=== PATIENT | male | born 1945 | race Caucasian/White ===

== ENCOUNTER → 2023-10-07 07:33 | Outpatient (REF) | payer MEDICARE, OTHER, SELFPAY ==
[2023-10-07 10:10] LABS: Glycohemoglobin (HgbA1c) 5.3 % (4.0-5.6)
[2023-10-07 10:33] LABS: ALT (SGPT) 29 U/L (0-50); AST (SGOT) 32 U/L (17-59); Albumin 4.2 g/dl (3.5-5.0); Alkaline Phosphatase 62 U/L (38-126); Blood Urea Nitrogen 34 mg/dl (9-20); Calcium 10.6 mg/dl (8.4-10.2); Carbon Dioxide 28 mmol/L (22-30); Chloride 103 mmol/L (98-107); Glucose 103 mg/dl (70-99); HDL Cholesterol 90 mg/dl; LDL Cholesterol, Calculated 86 mg/dl; Potassium 4.4 mmol/L (3.5-5.1); Sodium 138 mmol/L (135-145); Total Bilirubin 0.7 mg/dl (0.2-1.3); Total Cholesterol 195 mg/dl (50-199); Total Protein 6.7 g/dl (6.3-8.2); Triglyceride 95 mg/dl (10-149); Very Low Density Lipoprotein 19 mg/dl (0-30); eGFR 56.93
[2023-10-07 12:02] LABS: PSA, Total - Screen 1.42 ng/ml (0.0-4.0)
[2023-10-07 14:34] LABS: TSH 3.36 uIU/ml (0.47-4.68)
== END ==
LOC: HWLAB 07:33
PROVIDERS: ATTENDING PHYSICIAN Internal Medicine
DX: R73.9 Hyperglycemia, unspecified (principal); E78.00 Pure hypercholesterolemia, unspecified; Z12.5 Encounter for screening for malignant neoplasm of prostate
CPT/HCPCS: 36415; 80053; 80061; 83036; 84443; G0103

== ENCOUNTER → 2024-09-29 10:05 | Outpatient (REF) | payer MEDICARE, OTHER, SELFPAY ==
[2024-09-29 12:43] LABS: % Eosinophils 6.6 % (0-6); % Immature Granulocytes 0.2 % (0-0.5); % Lymphocytes 23.6 % (20.5-51.1); % Monocytes 9.5 % (1.7-9.3); % Neutrophils 59.1 % (42.2-75.2); Absolute Basophils 0.1 10^3/uL (0-0.2); Absolute Eosinophils 0.3 10^3/uL (0-0.7); Absolute Lymphocytes 1.2 10^3/uL (1.2-3.4); Absolute Monocytes 0.5 10^3/uL (0.1-0.6); Absolute Neutrophils 3.1 10^3/uL (1.4-6.5); Hematocrit 43.6 % (39.0-52.0); Hemoglobin 14.8 g/dL (13.0-18.0); Mean Corp Hgb Conc. 33.9 g/dL (33.0-37.0); Mean Corpuscular Volume 97.1 fL (80.0-94.0); Mean Platelet Volume 9.5 fL (7.4-10.4); Nucleated Red Blood Cells % 0 % (-); Platelet Count 202 10^3/uL (130-400); Red Blood Cell Count 4.49 10^6/uL (4.70-6.10); Red Cell Dist. Width 13.1 % (11.5-14.5); White Blood Cell Count 5.2 10^3/uL (4.8-10.8)
[2024-09-29 13:06] LABS: ALT (SGPT) 22 U/L (0-50); AST (SGOT) 27 U/L (17-59); Albumin 4.5 g/dl (3.5-5.0); Alkaline Phosphatase 65 U/L (38-126); Blood Urea Nitrogen 41 mg/dl (9-20); Calcium 10.5 mg/dl (8.4-10.2); Carbon Dioxide 24 mmol/L (22-30); Chloride 108 mmol/L (98-107); Glucose 98 mg/dl (70-99); HDL Cholesterol 81 mg/dl; LDL Cholesterol, Calculated 121 mg/dl; Potassium 4.8 mmol/L (3.5-5.1); Sodium 141 mmol/L (135-145); Total Bilirubin 0.8 mg/dl (0.2-1.3); Total Cholesterol 223 mg/dl (50-199); Total Protein 7.4 g/dl (6.3-8.2); Triglyceride 106 mg/dl (10-149); Very Low Density Lipoprotein 21 mg/dl (0-30); eGFR 47.65
[2024-09-29 14:29] LABS: Glycohemoglobin (HgbA1c) 5.1 % (4.0-5.6)
== END ==
LOC: HWLAB 10:05
PROVIDERS: ATTENDING PHYSICIAN Internal Medicine
DX: F32.1 Major depressive disorder, single episode, moderate (principal); R73.9 Hyperglycemia, unspecified; E78.00 Pure hypercholesterolemia, unspecified
CPT/HCPCS: 36415; 80053; 80061; 83036; 84443; 85025

== ENCOUNTER 2024-10-26 05:16 | Inpatient (IN) | payer MEDICARE, OTHER, SELFPAY ==
[2024-10-25 23:35] VITALS: BP 163/88; BMI 25.8
--- NOTE | 2024-10-25 23:38 | ED.GENMED ---
History of Present Illness
General
Chief Complaint: Abdominal Pain
Source: patient
Exam Limitations: none
Time Seen by Provider: 10/25/24 23:35
Nursing documentation reviewed up to this point in time: agreed with
History of Present Illness
History of Present Illness:
This is a 79-year-old male with past medical history of hyperlipidemia, depression, migraines, who presents emergency department today with concerns of epigastric pain for the past hour and 15 minutes. Patient states that he is feeling well today
and is carrying on his usual when he went to bed. He woke up with this pain. He spoke to his daughter who encouraged him to call 911 or report to emergency department. He did have similar pain a few months ago but patient states that he was able
to go to bed and sleep through the pain but this time, the pain is more severe. He rates it as a constant, gnawing pain and he states he cannot feel position that is comfortable for him. He denies any nausea or vomiting. He denies any cough chest
pain shortness of breath fevers or chills. He denies any sick contacts. He denies any history of heart disease. He thought his symptoms were related to acid reflux however he took 2 Tums and noticed that the pain did not resolve. Patient does
take 2 Excedrin's weekly but denies any daily NSAID use. He denies any dark tarry stools, rectal bleeding. Previously used alcohol but does not currently drink.
Past History
Past History
ED Past Medical History: Hypercholesterolemia
Social History
Tobacco: Non-smoker
Drug: None
Personal:
Living: alone
Review of Systems
Review of Systems
All Other Systems: ROS reviewed and negative except as documented in HPI and ROS
Phy Exam
Physical Exam
Physical Exam:
General: Patient is well appearing and in no acute distress; non-toxic
Skin: Warm and dry, no rashes or lesions
Head: Normocephalic, atraumatic
Eyes: Sclera non-icteric. EOMs intact.
Cardiac: Regular rate and rhythm, no murmurs, no tenderness palpation of external chest wall
Peripheral Vascular: No lower extremity swelling or edema
Pulm: Normal respiratory effort, no wheezes, rales, or rhonchi
Abdomen: Epigastric upper abdominal tenderness to palpation no rebound no guarding
Neuro: CN II-XII intact, no focal neurologic deficits.
Psychiatric: Appropriate mood and affect.
Course
Orders/Labs/Results
Orders:
Orders
10/25/24 23:28
IV Insert/Care/Rem.- Treatment PRN
10/25/24 23:32
EKG [Electrocardiogram (*1)] Urgent
Reason for Study: Abdominal Pain
10/25/24 23:33
EKG- Treatment ONCE
Complete Blood Count/With Diff Urgent
Comprehensive Metabolic Panel Urgent
Lipase Urgent
10/25/24 23:59
Troponin I Urgent
Famotidine [Pepcid] 20 mg IV NOW STA
Pantoprazole [Protonix IV] 40 mg IV NOW STA
US Abdomen Complete/Upper Urgent
Comment:
Reason For Exam: epigastric pain/right sided pain
10/26/24 00:13
0.9% Sodium Chloride 500 ml [Nss] 500 ml IV BOLUS
10/26/24 01:29
Ketorolac [Toradol] 15 mg IV NOW STA
10/26/24 01:30
CT Abd/pelvis W Iv Cont Urgent
Comment:
Reason For Exam: epigastric/right sided abdominal pain
10/26/24 01:31
Electrocardiogram (*1) Urgent
Reason for Study: Chest Pain
10/26/24 02:59
Troponin I Urgent
10/26/24 03:00
Electrocardiogram (*1) Urgent
Reason for Study: Chest Pain
10/26/24 03:30
Piperacillin/Tazo 3.375 Gram [Zosyn] 3.375 gram in 50 ml IV NOW
10/26/24 04:53
Admit/Transfer Patient As Directed
Co-Sign Provider:
Level of Care: Inpatient admission
Assign to:: Telemetry
Physician / Group: hospital
Diagnosis: abdominal pain
Reason for Telemetry: Chest Pain syndromes
Date to Stop Telemetry: 10/28/24
Time to Stop Telemetry: 11:00
Reason for Hospitalization: suspected cholecystitis
Expected length of stay greater than two midnights?: Yes
ELOS- Estimated Length of Stay in days: 2
I certify the patient meets the requirements for IP care: Yes
10/26/24 04:54
PRN Pain Medication Management As Directed
May give lesser potent ordered pain med per pt: Yes
preference::
Protocol:: Medication orders for pain may be administered in a
manner that supports deferring to patient preference
when the pt is:
- Requesting an ordered lesser potent pain medication.
Least to most potent pain medications are defined
as: acetaminophen < NSAID < tramadol < opioids
(morphine, oxycodone, hydromorphone).
- Requesting a lesser dose of the same medication IF
ORDERED.
- Requesting a less intrusive route of administration
if both routes are prescribed by the provider (PO <
IV).
10/26/24 04:55
Code Status As Directed
Resuscitation Status: Full Code
10/26/24 05:00
Flush (0.9% Sodium Chloride) [Flush (Nss)] See Dose Instructions IV PER PROTOCOL
10/26/24 06:00
Troponin I Routine
10/26/24 10:00
Troponin I Routine
10/28/24 11:00
DC Protocol for Telemetry ONCE
Abnormal Lab Results
10/25/24 10/26/24
23:33 02:59
RBC 4.28 L 10^6/uL
(4.70-6.10)
MCV 94.2 H fL
(80.0-94.0)
MCH 33.2 H pg
(27.0-31.0)
Absolute Eos (auto) 0.8 H 10^3/uL
(0-0.7)
Neutrophils % 40.6 L %
(42.2-75.2)
Monocytes % 9.4 H %
(1.7-9.3)
Eosinophils % 12.6 H %
(0-6)
Chloride 109 H mmol/L
(98-107)
BUN 37 H mg/dl
(9-20)
Creatinine 1.6 H mg/dL
(0.7-1.3)
Glucose 102 H mg/dl
(70-99)
Calcium 10.3 H mg/dl
(8.4-10.2)
Troponin I 0.053 H* D ng/ml
10/25/24 23:33
10/25/24 23:33
Vital Signs
Initial and Last Documented VS:
Initial Vital Signs
Temp Pulse Resp BP Pulse Ox
98.2 F 73 16 163/88 98
10/25/24 23:35 10/25/24 23:35 10/25/24 23:35 10/25/24 23:35 10/25/24 23:35
Last Documented Vital Signs
Temp Pulse Resp BP Pulse Ox
98.2 F 83 19 129/77 98
10/25/24 23:35 10/26/24 04:00 10/26/24 04:00 10/26/24 04:00 10/25/24 23:35
MDM/Problems Addressed
Differential Diagnosis Includes:
ddx ACS, gastritis, costochondritis, pancreatitis, duodenitis, biliary colic
MDM/Problems Addressed:
79-year-old male presents emergency department today with concerns of epigastric pain. I woke him up in the middle of the night. On physical exam he is well-appearing, in no acute distress, but is very tender to palpation. His ultrasound did show
a gallstone but was negative for cholecystitis. Patient with persistent pain with no improvement with medications, he subsequently sent for CAT scan which showed findings concerning for acute cholecystitis status. He did have prior episodes of
pain which likely represented biliary colic. Prior to CAT scan coming back, did order troponin for repeat to rule out ACS, second troponin elevated however in light of ekg with no ischemic changes and no chest pain, less concerning for acs. Will
start on antibiotics and admit to hospital, surgery notified
Chronic conditions affecting care:
hlp, depression
*Pulse Oximetry
Patient hypoxic: no
*Critical Care Note
Total Time (30-74mins, 75-104mins- exclusive of procedures): Not Applicable
Data Reviewed
Review of Other/Old Records Reveals: Records (Reviewed previous records, reviewed ER physician documentation from 04/28/2023 patient seen for laceration of the head)
Patient Management
Escalation/DeEscalation of care consider admission/obs:
Patient referred for admission, case reviewed with attending
Update Note
Update Note:
1:14 am--Ultrasound reviewed, no evidence of cholecystitis/pancreatits; mobile gallstone noted
1:29 am-- Patient notes worsening of symptoms and no improvement with pepcid; states still very tender to palpation. Will obtain CAT scan and give dose of Toradol
ED Attending Note
-
Portions of this chart may have been created with voice recognition software.� Occasional wrong word or��sound alike� substitutions may have occurred due to the inherent limitations of voice recognition software.
Discharge Plan
Departure
Patient Disposition: Admit
Date of Disposition: 10/26/24
Time of Disposition: 03:29
Admit to: Med/Surg
Presentation/result/management discussed w/ accepting MD/DO: Hospitalist
Condition: Fair
Discharge Problem:
Acute cholecystitis
Interventions
Interventions:
*Risk Screen - Suicide Last Done: 10/25/24 23:28
*General Assessment Last Done: 10/25/24 23:28
*Neglect/Abuse Screening Last Done: 10/25/24 23:28
*ED- Fall Risk Assessment Last Done: 10/25/24 23:35
*ED COVID-19 Vaccine History Last Done: 10/25/24 23:28
SN-Cqngxx-Thffhgcljs Assessment Last Done: 10/25/24 23:44
[2024-10-25 23:41] LABS: % Basophils 0.7 % (0-2); % Eosinophils 12.6 % (0-6); % Immature Granulocytes 0.2 % (0-0.5); % Lymphocytes 36.5 % (20.5-51.1); % Monocytes 9.4 % (1.7-9.3); % Neutrophils 40.6 % (42.2-75.2); Absolute Eosinophils 0.8 10^3/uL (0-0.7); Absolute Lymphocytes 2.2 10^3/uL (1.2-3.4); Absolute Monocytes 0.6 10^3/uL (0.1-0.6); Absolute Neutrophils 2.5 10^3/uL (1.4-6.5); Hematocrit 40.3 % (39.0-52.0); Hemoglobin 14.2 g/dL (13.0-18.0); Mean Corp Hgb Conc. 35.2 g/dL (33.0-37.0); Mean Corpuscular Hgb 33.2 pg (27.0-31.0); Mean Corpuscular Volume 94.2 fL (80.0-94.0); Mean Platelet Volume 8.9 fL (7.4-10.4); Nucleated Red Blood Cells % 0 % (-); Platelet Count 199 10^3/uL (130-400); Red Blood Cell Count 4.28 10^6/uL (4.70-6.10); White Blood Cell Count 6.1 10^3/uL (4.8-10.8)
[2024-10-25 23:58] LABS: ALT (SGPT) 21 U/L (0-50); AST (SGOT) 27 U/L (17-59); Albumin 4.1 g/dl (3.5-5.0); Calcium 10.3 mg/dl (8.4-10.2); Carbon Dioxide 23 mmol/L (22-30); Chloride 109 mmol/L (98-107); Glucose 102 mg/dl (70-99); Lipase 171 U/L (23-300); Potassium 4.2 mmol/L (3.5-5.1); Sodium 141 mmol/L (135-145); Total Bilirubin 0.6 mg/dl (0.2-1.3); Total Protein 6.7 g/dl (6.3-8.2)
[2024-10-26] VITALS (25 sets, daily range): BP systolic 113–165; BP diastolic 63–97
[2024-10-26] MEDS: PEPCID 20 MG IV (00:06)
[2024-10-26 00:11] LABS: Blood Urea Nitrogen 37 mg/dl (9-20); Estimated Creatinine Clearance 35 ml/min
[2024-10-26] MEDS: PROTONIX IV 40 MG IV (00:12)
[2024-10-26 00:30] LABS: Alkaline Phosphatase 61 U/L (38-126)
[2024-10-26 00:37] LABS: Troponin I 0.016 ng/ml
[2024-10-26] MEDS: NSS 500 IV (00:49)
[2024-10-26] MEDS: TORADOL 15 MG IV (01:34)
[2024-10-26] MEDS: ZOSYN 50 IV ×4 (03:33→21:55)
[2024-10-26 03:54] LABS: Troponin I 0.053 ng/ml
--- NOTE | 2024-10-26 04:41 | HPS.HSE ---
Family Physician
-
Family Physician: Braden Paulino
Chief Complaint
-
Epigastric pain
History of Present Illness
This is a 79-year-old male with past medical history significant for hyperlipidemia, depression presented to the emergency department with acute episode of epigastric pain. Patient reported that he had a similar episode about a month ago with acute
epigastric pain. At that time he was able to withstand the pain until it resolved and decided not to come to the emergency department.
At this time the pain arousing from sleep. It is epigastric and has slight radiation to the bilateral upper quadrant. There was no radiation to the back. There was no radiation to the neck's or jaws. He denies any numbness tingling. He denies
diaphoresis or shortness of breath. He had no vomiting. He had no nausea. He denied any recent melena or hematochezia patient walked around to see if this will help the pain as he thought it was from secondary to gas however he had no improvement
so he called 911. He has had no fevers or chills. He denies history of gallstones. He denies history of CAD. He has no recent exertional chest pain or dyspnea.
In the emergency department he was afebrile, blood pressure was in normal 130/75 with a pulse of 83. Initial troponin was 0.016, repeat troponin was elevated at 0.05, he will ECG showed normal sinus rhythm at a rate of 76 with a right bundle. No
priors for comparison. His CBC was normal with a eosinophilic predominance similar to prior. His electrolytes were also normal. The creatinine was 1.6 unchanged from recent of 1.5. LFTs were normal lipase was normal.
An ultrasound showed mobile gallstone, but no sonographic Agudelo sign, no wall thickening, pericholecystic fluid or other signs of cholecystitis. The common bile duct was unremarkable.
CT scan shows trace fluid between the liver and gallbladder with a small gallstone, no biliary ductal dilation, early cholecystitis could not be excluded.
Patient reported to me that while she was under the ultrasound he did have tenderness. His symptoms were resolved after Toradol.
Medical History
Past Medical History
Past Medical History: Reports Hypercholesterolemia
Past Surgical History: Reports Other (b/l inguinal hernia repair with mesh ([facility]) )
Social History
Tobacco: Non-smoker
Alcohol: Occasional
Drug: None
Personal:
Living: Alone
Employment: Retired
Family History
Family History: Not pertinent
Allergies / Home Medications
Allergies reflects when Allergies were last updated in [employer].
Home Medications with original date entered in [employer]
Allergy/Medication List:
Allergies
Allergy/AdvReac Type Severity Reaction Status Date / Time
No Known Allergies Allergy Verified 10/25/24 23:37
Home Medications
aspirin 81 mg tablet,delayed release 81 mg PO SUWE 07/16/17
simvastatin 40 mg tablet 40 mg PO QPM 07/16/17
Lexapro 10 mg tablet, 10 mg p.o. daily
Doxycycline 20 mg tablet, 20 mg p.o. twice daily prn
Review of Systems
-
History Source: Patient
Constitutional: Reports No Symptoms
EENT: Reports No Symptoms
Cardiac: Reports No Symptoms
Abdomen/GI: Reports Abdominal Pain
: Reports No Symptoms
Musculoskeletal: Reports No Symptoms
Skin: Reports No Symptoms
Neurological: Reports No Symptoms
Endocrine: Reports No Symptoms
Hematologic/Lymphatic: Reports No Symptoms
Psych: Reports No Symptoms
Physical Exam
Vital Signs
Vital Signs
Temp Pulse Resp BP Pulse Ox
98.2 F 83 19 129/77 98
10/25/24 23:35 10/26/24 04:00 10/26/24 04:00 10/26/24 04:00 10/25/24 23:35
Physical Exam
General: Well Developed, Well Nourished, Comfortable and Conversant
HEENT: NormoCephalic, Anicteric and Moist mucous membranes
Respiratory: Clear
Cardiac: S1/S2 and Regular Rhythm
GI: Soft, Non Distended, Normal Bowel Sounds and Tender
Rectal: Deferred by Provider
Genito-urinary: Deferred by me
Musculoskeletal: No Cyanosis and No Edema
Skin: Warm
Neuro: AO x 3 and Nonfocal/grossly intact
Hematologic/Lymphatic: No Lymphadenopathy
Psych: Calm
Laboratory Results
-
10/25/24 23:33
10/25/24 23:33
Laboratory Results
Total Bilirubin 0.6 mg/dl (0.2-1.3) 10/25/24 23:33
AST 27 U/L (17-59) 10/25/24 23:33
ALT 21 U/L (0-50) 10/25/24 23:33
Alkaline Phosphatase 61 U/L (38-126) 10/25/24 23:33
Troponin I 0.053 ng/ml H* D 10/26/24 02:59
Lipase 171 U/L (23-300) 10/25/24 23:33
Data Reviewed
-
CT Scan: Report Reviewed by me
Ultrasound: Report Reviewed by me
Medical Tests (Nuc Med, Echo, EKG etc): Image Personally Visualized and interpreted
Lab Data: Labs Reviewed by me
Old Records: Reviewed
Impression/Plan
-
IMPRESSION:
This is a 79-year-old with past medical history significant for hyperlipidemia presenting to the emergency department with acute episode of epigastric pain that woke him from sleep. Workup in the emergency department reveals a CT scan that is
concerning for early cholecystitis. He is afebrile and hemodynamically stable. Pain is reproducible with palpation. ECG was nonischemic. However he did have a troponin bump. He is currently pain-free denies any other symptoms. He has no prior
history of CAD and denied any coronary symptoms prior to this episode. Cannot rule out an NSTEMI versus nonischemic myocardial injury.
PLAN:
Cholecystitis - Suspected cholecystitis, pain with palpation. Pericholecystic fluid. Mobile gall stone in GB. No GB wall thickening or distension. HD stable and afebrile.
- admit to telemetry
- npo for now
- pain control
- IV zosyn started, will continue for now
- IV fluids and antiemetics
- PPI iv daily for now
- surgery consulted
Troponin elevation to 0.056- NIMI suspected but cannot rule out NSTEMI. ECG NSR with RBBB, no priors. H/O HLD.
- telemetry
- repeat trop in 3 hours,
- will have cardiology weigh in
- holding ac for now
DVT PPX - heparin sq
Code status - full code
[2024-10-26] MEDS: LR 1000 IV (05:57)
[2024-10-26 06:12] LABS: Hematocrit 35.1 % (39.0-52.0); Hemoglobin 12.4 g/dL (13.0-18.0); Mean Corp Hgb Conc. 35.3 g/dL (33.0-37.0); Mean Corpuscular Hgb 33.2 pg (27.0-31.0); Mean Corpuscular Volume 93.9 fL (80.0-94.0); Mean Platelet Volume 8.9 fL (7.4-10.4); Platelet Count 174 10^3/uL (130-400); Red Blood Cell Count 3.74 10^6/uL (4.70-6.10); Red Cell Dist. Width 12.8 % (11.5-14.5); White Blood Cell Count 7.2 10^3/uL (4.8-10.8)
[2024-10-26 06:41] LABS: Troponin I 0.101 ng/ml
[2024-10-26 06:45] LABS: Blood Urea Nitrogen 33 mg/dl (9-20); Calcium 9.9 mg/dl (8.4-10.2); Glucose 99 mg/dl (70-99)
[2024-10-26 06:57] LABS: Carbon Dioxide 20 mmol/L (22-30); Chloride 111 mmol/L (98-107); Estimated Creatinine Clearance 37 ml/min; Potassium 4.5 mmol/L (3.5-5.1); Sodium 142 mmol/L (135-145); eGFR 47.65
--- NOTE | 2024-10-26 08:14 | CON.CAR ---
Addendum entered and electronically signed by Guru Kasper MD 10/26/24 11:49:
I saw and examined the patient.
The RENDERING EQUIPMENT TENDER's note was reviewed and I agree with the note.
Comment:
79-year-old man with dyslipidemia and RBBB who presents with abdominal pain, found to have acute cholecystitis. Cardiology is consulted for preoperative risk stratification prior to cholecystectomy. He reports that he is able to do 4 METS of
activity without any symptoms. He has no cardiovascular complaints. Physical exam with regular rate and rhythm, no murmurs, clear lungs, and no lower extremity edema. Labs notable for creatinine 1.5 (unknown baseline), troponin 0.053 -> 0.101 ->
0.077. ECG reveals NSR with occasional PVC and RBBB. Echocardiogram with LVEF 55-60%, no regional wall motion abnormalities, normal RV, no significant valvular disease. Given that he is able to do 4 METS of activity without any symptoms and has
no unstable angina, decompensated heart failure, or unstable arrhythmia, he is safe to undergo cholecystectomy without any further cardiovascular testing. Suspect his troponin was elevated due to nonischemic myocardial injury in the setting of
elevated BPs on arrival and ongoing infection. Okay to stop trending.
Cardiology will sign off at this time. Please call with additional questions or concerns.
Original Note:
Consultation
Consultation Request
Date/Time Consultation Requested: 10/26/24 0543
Date/Time Consultation Performed: 10/26/24 08
Requesting Provider: Dr. Morris
Performing Provider: Kristie DIXON for Dr. Kasper
Reason for Consultation: abnormal troponin
Medical History
-
Chief Complaint: abdominal pain
History of Present Illness:
79 y/o male with dyslipidemia, RBBB, and inguinal hernia repair who is here for evaluation of abdominal pain that woke him up from sleep around 10:30 PM. It was 8-9/10 on pain scale. This happened about 2 months ago as well, but passed. This time,
he came to the ER. He is seen to have acute cholecystitis. There was tenderness when he got the abdominal ultrasound. His pain resolved about 30 minutes after receiving pain medicine. He denies any CP or SOB. We are consulted for abnormal troponin.
He is in no distress at the time of my assessment. Plan is for charisse carr today.
Past Medical History
Past Medical History: Hypercholesterolemia and Other (as above)
Past Surgical History: Other (as above)
Social History
Tobacco: Non-Smoker
Personal:
Family History
Family History: Reviewed & Not Pertinent
Allergies / Home Medications
Allergy/AdvReac Type Severity Reaction Status Date / Time
No Known Allergies Allergy Verified 10/25/24 23:37
�Medication �Instructions �Recorded �Confirmed �Type
aspirin 81 mg tablet,delayed 81 mg PO SUWE 07/16/17 10/25/24 History
release
swklais-bygtzbgbeelvj-zkifnjde 250 2 tab PO PRN PRN migraines 07/16/17 10/25/24 History
mg-250 mg-65 mg tablet (Excedrin
Migraine)
simvastatin 40 mg tablet 40 mg PO QPM 07/16/17 10/25/24 History
Review of Systems
-
History Source: Patient
All other systems: Negative unless noted
Abdomen/GI: Abdominal Pain
Physical Exam
Vital Signs
Temp Pulse Resp BP Pulse Ox
98.2 F 71 15 113/64 98
10/25/24 23:35 10/26/24 06:00 10/26/24 06:00 10/26/24 06:00 10/25/24 23:35
Lab Results
10/26/24 05:57
10/26/24 05:57
Troponin I 0.101 ng/ml H* D 10/26/24 05:57
Physical Exam
General: Well Developed, Well Nourished and No Apparent Distress
HEENT: Normocephalic and Anicteric
Respiratory: Clear and Non Labored Respirations
Cardiac: Regular Rhythm
Musculoskeletal: No Edema
Skin: Warm and Dry
Neuro: AO x 3
Psych: Calm
Impression / Plan
-
Severe abnormal pain, acute cholecystitis:
-pain free at present
-on Abx, pain meds
-plan is lap bruno today per surgery team
Elevated troponin:
-suspect acute non-ischemic myocardial injury in setting of acute illness as above, as well as abnormal renal function
-trend to peak
-obtain echo this AM (I let echo team know so they could do this AM prior to surgery to make sure no major abnormality)
-no CP, EKG stable
-He walks his dog 1.5 miles every day without any CP or SOB. He does stairs without difficulty.
Abnormal renal function:
-denies any history of this (though creat mildly elevated back in 2018 here)
-monitor
RBBB:
-chronic, stable
HLD:
-on statin as OP- resume when able
Data Reviewed
-
EKG: Tracing Personally Visualized and interpreted (NSR 76 BPM, PVC's)
CT Scan: Report Reviewed by me (abd/pelv CT: Gallbladder wall thickening and mild adjacent inflammatory change. Findings are suggestive of acute cholecystitis. )
Ultrasound: Report Reviewed by me (Cholelithiasis. Mild gallbladder wall edema. Negative sonographic Agudelo's sign. Findings are considered equivocal for acute cholecystiti)
Labs: Labs Reviewed by me
[2024-10-26] MEDS: HEPARIN 5000 UNITS SC (08:23)
--- NOTE | 2024-10-26 09:18 | CON.GS ---
Addendum entered and electronically signed by Jb Tian MD 10/26/24 10:31:
I saw and examined the patient independently.
The Vb Net Developer's note was reviewed and I agree with the note, assessment and plan except where noted below.
Comment: This is a 79-year-old male with a history of bilateral robotic inguinal hernia repairs presents with 1 day history of postprandial right upper quadrant pain in the setting of a similar episode 2 months ago[address] Ul[address] and CT imaging
consistent with acute cholecystitis. He does have a troponin leak for which cardiology has been consulted and suspect an acute nonischemic myocardial injury.
He is getting an echo this morning.
Will plan for surgery afterwards. Laparoscopic cholecystectomy with cholangiogram.
N.p.o., IV fluids, IV antibiotics ordered.
Risks/Benefits/Alternatives, expected postoperative course and possible complications (bleeding, infection, injury to surrounding structures, acute/chronic pain) discussed at length. Patient wishes to proceed with surgery. All questions answered.
Consent obtained.
I spent 70 minutes in total for the care of this patient today including direct patient care and counseling, reviewing labs, imaging, coordination of care, as well as documentation.
Original Note:
Consultation
-
Date/Time Consultation Performed: 10/26/24 0815
Reason for Consultation: cholecystitis
Medical History
-
Chief Complaint: ABD pain
History of Present Illness:
Mr Ritchie is a 79 yo male with h/o robotic inguinal hernia repair who presented overnight with epigastric pain which was severe and persistent. He notes a similar episode 2 months ago which was about 1 hour in duration. He notes with this episode,
pain began around 2230 last night awakening him from sleep and persisted until he received analgesics in the ED. He denies active pain currently with no abdominal tenderness on exam. He denies nausea or vomiting. He denies fevers or chills.
Past Medical History
Past Medical History: Hypercholesterolemia
Past Surgical History: Hernia Repair (robotic inguinal hernia repair)
Social History
Tobacco: Non-Smoker
Alcohol: None
Personal:
Family History
Family History: Reviewed & Not Pertinent
Allergies / Home Medications
Allergy/AdvReac Type Severity Reaction Status Date / Time
No Known Allergies Allergy Verified 10/25/24 23:37
�Medication �Instructions �Recorded �Confirmed �Type
aspirin 81 mg tablet,delayed 81 mg PO SUWE@0800 07/16/17 10/26/24 History
release
ltivkrm-bwdilrghsxpwg-rwzazoxi 250 2 tab PO DAILYPRN PRN migraines 07/16/17 10/26/24 History
mg-250 mg-65 mg tablet (Excedrin
Migraine)
simvastatin 40 mg tablet 40 mg PO HS 07/16/17 10/26/24 History
doxycycline hyclate 20 mg tablet 20 mg PO BID gum infection 10/26/24 10/26/24 History
escitalopram oxalate 10 mg tablet 10 mg PO DAILY 10/26/24 10/26/24 History
(Lexapro)
Review of Systems
-
History Source: Patient
All other systems: Negative unless noted
A 10 point review of systems was completed, and was negative except as per HPI.
Physical Exam
Vital Signs
Temp Pulse Resp BP Pulse Ox
98.1 F 72 16 138/84 96
10/26/24 08:50 10/26/24 08:28 10/26/24 08:28 10/26/24 08:28 10/26/24 08:28
10/25/24 10/26/24 10/27/24
06:59 06:59 06:59
Actual Weight 72.5 kg
Body Mass Index (BMI) 25.8
Lab Results
10/26/24 05:57
10/26/24 05:57
WBC 7.2 10^3/uL (4.8-10.8) 10/26/24 05:57
Hgb 12.4 g/dL (13.0-18.0) L 10/26/24 05:57
Hct 35.1 % (39.0-52.0) L 10/26/24 05:57
Plt Count 174 10^3/uL (130-400) 10/26/24 05:57
Abs Immat Gran (auto) 0.0 10^3/uL (0-0.05) 10/25/24 23:33
Neutrophils % 40.6 % (42.2-75.2) L 10/25/24 23:33
Physical Exam
General: Well Developed and Well Nourished
HEENT: Moist Mucous Membranes
Respiratory: Non Labored Respirations
GI: Soft, Non Tender and Non Distended
Skin: Warm and Dry
Neuro: Awake, Alert and AO x 3
Psych: Calm
Data Reviewed
-
CT Scan: Image Personally Visualized and interpreted, Report Reviewed by me, Discussed with Physician, Discussed with Nurse and Discussed with Patient
Ultrasound: Report Reviewed by me, Discussed with Physician and Discussed with Patient
Labs: Labs Reviewed by me, Discussed with Physician, Discussed with Nurse and Discussed with Patient
Old Records: Reviewed
Assessment / Plan
-
79 yo male presenting with acute onset of epigastric pain awakening him from sleep last night. Pain improved s/p analgesics/PPI/Pepcid in ED. Afebrile with stable VSS. LFT's WNL. No leukocytosis. Trop mildly elevated as well as Cr. CT and US
imaging concerning for acute calculous cholecystitis. Currently nontender on exam.
--Cardiology consulted for preoperative clearance, appreciate recs. Await 2D Echo.
--NPO for tentative OR later today vs cholecystectomy tube if surgery deemed too high risk at this time
--Continue IV Zosyn
--Analgesics/Antiemetics
--SCDS for vte ppx preop
--- NOTE | 2024-10-26 10:36 | W.SUR.PREOP ---
Pre-Operative Surgical Note
-
I have examined this patient prior to the performance of the scheduled procedure.
The patient's condition is unchanged from the time of the current History and
Physical and the patient is able to undergo the scheduled procedure.
--- NOTE | 2024-10-26 11:06 | CM ---
CM met with pt bedside
Pt resides alone in a 2SH with 1 threshold step, full flight to 2nd floor
Pt is indep with his ADLs, denies use of DMEs, drives+
Has a RTS and transport chair in home from spouse
Pt is an [employer] vet and does not receive services or care through the [facility]
Rx coverage through /[facility]
PCP- Braden Paulino
Rx- Esau Hernandez
Plan for lap bruno today
Dtrs Cassidy and Concha are joint POAs
Discharge Disposition- anticipate home, watch for VN needs
[2024-10-26 11:33] LABS: Troponin I 0.077 ng/ml
--- NOTE | 2024-10-26 12:22 | W.PN.UPDATE ---
Update Note
Progress Note Update
Admitted this morning by Dr. Morris for acute cholecystitis.
Currently asymptomatic without abdominal pain.
No chest pain but his troponins elevated in the indeterminate range. No prior history of CAD. Seen by cardiology had an echocardiogram which showed EF of 55 to 60% and no significant valve heart disease. He is cleared for surgery. Discussed with
surgery and he is going for lap cholecystectomy today.
--- NOTE | 2024-10-26 17:14 | W.IMMPOSTOP ---
Surgical Immed Post Op Note
-
Primary Surgeon: Jb Tian MD
Assisting Surgeon: None
Pre-op Diagnosis: Acute cholecystitis
Post-op Diagnosis: Same
Procedure Performed: Laparoscopic cholecystectomy with cholangiogram
Anesthesia Type: General
Specimen / Cultures: Gallbladder and contents
Estimated Blood Loss: 31 cc
Complications: None
Operative Findings: Distended and inflamed gallbladder. Critical view of safety obtained prior to cholangiogram demonstrated no distal filling defects and normal biliary anatomy. Somewhat Mike throughout the case, 1 g of TXA given. And artery
tracking along the posterior gallbladder fossa was clipped. Surgiflo applied at the end of the procedure.
POST OP PLAN:
Imaging: None
Labs: Routine AM
Diet: Advance to Regular as tolerated
Analgesia: Tylenol 650mg q6 Kimmy, Ivon 5mg q6 PRN, Dilaudid 0.5mg q2h PRN
Neuro/vascular checks: q4h
AC/AP: Hold Therapeutic AC, Ok for DVT PPx
Activity: Ad Amaris
Wound/Incisions/Drains: Routine
Abx: Continue antibiotics while admitted
Dispo: RNF, anticipate discharge home tomorrow.
--- NOTE | 2024-10-26 17:16 | OR.RPT ---
Operative Report
Operative Report
Patient Name: Braden Ritchie
: 1945
Date of Operation: 10/26/2024
Preoperative Diagnosis: Acute cholecystitis
Postoperative Diagnosis: Same
Procedure(s):
Laparoscopic Cholecystectomy with Cholangiogram
Surgeon(s):
Dr. Tian
Tile Presser(s):
AKBAR Wells
Anesthesia: General
Estimated Blood Loss: 31 cc
Urine Output: None
Drains/Lines/Implants: None
Specimens:
1. Gallbladder and contents
HPI/Surgical Indications:
This is a 79-year-old male who presents with a 1 day history of postprandial right upper quadrant abdominal pain. Exam, labs and imaging are consistent with acute cholecystitis with some concomitant cardiac demand ischemia but cleared by cardiology
after normal echo. Risks/Benefits/Alternatives were discussed at length, and the patient agreed to proceed with surgery.
Operative Findings: Distended and inflamed gallbladder. Critical view of safety obtained prior to cholangiogram demonstrated no distal filling defects and normal biliary anatomy. Somewhat Mike throughout the case, 1 g of TXA given. And artery
tracking along the posterior gallbladder fossa was clipped. Surgiflo applied at the end of the procedure.
Procedure Description:
The patient was brought to the Operating Room and placed in the supine position with one arm tucked. Following uneventful induction of general endotracheal anesthesia, an orogastric tube was placed. The abdomen was prepped and draped in the usual
sterile fashion. A timeout was performed confirming the procedure, consent, and that IV antibiotics were infused and sequential compression devices were confirmed to be on. The abdomen was entered using an infraumbilical open Pradeep technique with
a 12 mm balloon-tipped trocar. Pneumoperitoneum to 15 mmHg pressure was obtained without difficulty and we confirmed that no injury had occurred during our entry. The patient was positioned in reverse Trendelenberg and rotated with the right side
up slightly. Three (3) 5mm trocars were then placed along the right subcostal margin. A locking grasping forceps was placed on the fundus of the gallbladder where it was then retracted cephalad and to the right. Using appropriate grasping
instruments, the peritoneum overlying the triangle of Calot was incised and extended superiorly on both the anterior and posterior gallbladder arpp. The infundibulum was dissected off the cystic plate. The cystic triangle was dissected until a
critical view of safety was achieved. The cystic artery was medialized, dissected and controlled with 2 proximal clips and 1 distal. The cystic duct/gallbladder junction in turn was identified, dissected circumferentially and a clip was placed. A
ductotomy was made and a cholangiocatheter on an Stockton clamp was inserted into the cystic duct. A C-arm was draped and brought into the field. An intra-operative cholangiogram was performed and was noted to have:
No filling defects in the biliary tree
No significant biliary dilation
Brisk flow of contrast into the duodenum
Normal biliary anatomy
The catheter was then removed and the cystic duct was controlled with a clip followed by a 0 PDS Endoloop. After ensuring both the artery and duct were divided, the gallbladder was freed from the liver using electrocautery. There was no spillage
of bile or stones however there was some bleeding from a posterior artery running along the gallbladder fossa which had to be clipped. Throughout the case there was some ooziness instill 1 g of TXA was administered. The gallbladder bed was
inspected and excellent hemostasis was obtained. Surgiflo was applied in the gallbladder fossa to ensure continued hemostasis. The gallbladder was extracted through the 12 mm trocar site using an endocatch bag. The abdomen was again irrigated and
excellent hemostasis was assured. All remaining trocars were then removed and the pneumoperitoneum was evacuated. The 12 mm trocar site was closed using 0 PDS suture. All trocar sites were closed at the skin level using 4-0 Monocryl followed by
Dermabond. Overall, the patient tolerated the procedure well and was taken to the Recovery Room postoperatively in stable condition.
I was the attending physician and performed the procedure with assistance from the DIRECTOR WEB above. I was present for all portions of the case, excluding skin closure.
Jb Tian MD
[2024-10-26] MEDS: HEPARIN SC (20:09)
[2024-10-26] MEDS: LR IV (20:09)
[2024-10-27 03:20] VITALS: BP 110/71
[2024-10-27] MEDS: ZOSYN 50 IV ×2 (03:35→09:10)
[2024-10-27 07:13] LABS: % Basophils 0.1 % (0-2); % Eosinophils 0.1 % (0-6); % Immature Granulocytes 0.4 % (0-0.5); % Lymphocytes 11.5 % (20.5-51.1); % Monocytes 8.2 % (1.7-9.3); % Neutrophils 79.7 % (42.2-75.2); Absolute Lymphocytes 0.8 10^3/uL (1.2-3.4); Absolute Monocytes 0.6 10^3/uL (0.1-0.6); Absolute Neutrophils 5.4 10^3/uL (1.4-6.5); Hematocrit 36.4 % (39.0-52.0); Mean Corp Hgb Conc. 35.7 g/dL (33.0-37.0); Mean Corpuscular Hgb 33.9 pg (27.0-31.0); Mean Corpuscular Volume 94.8 fL (80.0-94.0); Mean Platelet Volume 8.9 fL (7.4-10.4); Nucleated Red Blood Cells % 0 % (-); Platelet Count 183 10^3/uL (130-400); Red Blood Cell Count 3.84 10^6/uL (4.70-6.10); Red Cell Dist. Width 12.8 % (11.5-14.5); White Blood Cell Count 6.8 10^3/uL (4.8-10.8)
[2024-10-27 07:45] VITALS: BP 115/60
--- NOTE | 2024-10-27 09:32 | W.PN.GS2 ---
Today's Communication / Plan
-
Dispo planning
Assessment / Plan
-
This is a 79-year-old male postoperative day 1 from a laparoscopic cholecystectomy. Doing well, expected postoperative course.
Okay to DC home today.
Discharge instructions reviewed with patient and placed in chart.
Prescription sent. No antibiotics needed for discharge.
Time Spent
Total Time Spent with Patient (in minutes): 20
Subjective Data
-
Date of Service: October 27, 2024
Interval Events:
No acute events overnight. Slept well. Pain Controlled. Denies Nausea/Vomiting, +bowel function. Tolerating diet.
Objective Data
-
Intake and Output
10/26/24 10/27/24 10/28/24
06:59 06:59 06:59
Intake Total 280 / 280
Balance 280 / 280
Intake:
Oral fluids 280 / 280
Other:
Number of approximated MODERATE 2
amounts of urine
Vital Signs
Temp Pulse Resp BP Pulse Ox
98.7 F 74 17 115/60 94
10/27/24 07:45 10/27/24 07:45 10/27/24 07:45 10/27/24 07:45 10/27/24 07:45
Lab Results
10/27/24 06:17
Calcium 9.9 mg/dl (8.4-10.2) 10/26/24 05:57
Total Bilirubin 0.6 mg/dl (0.2-1.3) 10/25/24 23:33
AST 27 U/L (17-59) 10/25/24 23:33
ALT 21 U/L (0-50) 10/25/24 23:33
Alkaline Phosphatase 61 U/L (38-126) 10/25/24 23:33
Total Protein 6.7 g/dl (6.3-8.2) 10/25/24 23:33
Albumin 4.1 g/dl (3.5-5.0) 10/25/24 23:33
Physical Exam
-
GENERAL/NEURO: Awake, Alert, no distress
CHEST: Unlabored breathing on RA
ABDOMEN: Soft, Non-Tender, Non-Distended
EXTREMITIES: warm, well perfused, no jaundice, no cyanosis, no edema
Patient has a olson catheter: No
Patient has a central line: No
[2024-10-27 09:37] LABS: ALT (SGPT) 33 U/L (0-50); AST (SGOT) 37 U/L (17-59); Albumin 4.1 g/dl (3.5-5.0); Alkaline Phosphatase 70 U/L (38-126); Blood Urea Nitrogen 23 mg/dl (9-20); Calcium 9.2 mg/dl (8.4-10.2); Carbon Dioxide 19 mmol/L (22-30); Chloride 110 mmol/L (98-107); Estimated Creatinine Clearance 43 ml/min; Glucose 116 mg/dl (70-99); Potassium 4.2 mmol/L (3.5-5.1); Sodium 141 mmol/L (135-145); Total Bilirubin 0.8 mg/dl (0.2-1.3); Total Protein 6.2 g/dl (6.3-8.2); eGFR 56.58
--- NOTE | 2024-10-27 10:56 | CM ---
Patient states he is for discharge today. CM confirmed IMM and signed form placed on chart. Patient daughter to transport patient home, Patient does not anticipate any discharge needs.
Plan; home with no needs
[2024-10-27 11:35] VITALS: BP 119/68
--- NOTE | 2024-10-27 13:54 | W.PN.HOSP.TC ---
Today's Communication/Plan
-
DC
Assessment / Plan
Assessment / Plan
Acute cholecystitis status post lap cholecystectomy and cholangiogram. LFTs normal. Cleared for discharge by surgery. Tolerating diet.
BETSY on possible chronic kidney disease stage IIIa-patient states in the past he had elevation of creatinine needing 1 visit with a molded goods embossing press operator in past but currently follows with PCP. Based on available GFR he may have underlying 3A disease.
Creatinine went up from 1.3 baseline to 1.6 9in acute setting and now back down to 1.3. Denies NSAID use at home. Advised to follow-up BMP in a week or 2 and follow with PCP.
Abnormal troponins in the indeterminate range without chest pain. Appreciate cardiology input. Suspected nonischemic myocardial injury. No further evaluation warranted. Echo noted. Cardiology signed off.
Medically stable as well for discharge.
Total time of discharge 32 minutes
Anticipated Discharge: Today
Subjective/Interval History
-
Date of Service: October 27, 2024
Status post cholecystectomy. Denies any nausea vomiting. No abdominal pain.
No fever or chills.
Tolerating diet.
Denies shortness of breath or chest pain.
Objective Data
-
Labs:
Laboratory Results
10/27/24
06:17
WBC 6.8
Hgb 13.0
Hct 36.4 L
Plt Count 183
Sodium 141
Potassium 4.2
Chloride 110 H
Carbon Dioxide 19 L
BUN 23 H
Creatinine 1.3
Glucose 116 H
Calcium 9.2
Total Bilirubin 0.8
AST 37
ALT 33
Alkaline Phosphatase 70
Vital Signs:
Vital Signs
Temp Pulse Resp BP Pulse Ox
99.1 F 74 16 119/68 95
10/27/24 11:35 10/27/24 11:35 10/27/24 11:35 10/27/24 11:35 10/27/24 11:35
I&O
10/26/24 10/27/24 10/28/24
06:59 06:59 06:59
Intake Total 280 / 280 1140 / 1140
Balance 280 / 280 1140 / 1140
Physical Exam
-
General: Comfortable
Respiratory: Non Labored Respirations; Negative Accessory Resp Muscle Use
GI: Soft and Nontender (discomfort over surgical sites)
Neuro: AO x 3
Data Reviewed
-
Labs: Labs Reviewed by me
[2024-10-27 14:10] VITALS: BP 130/72
--- NOTE | 2024-10-27 17:25 | W.DCSUMMARY ---
Discharge Summary
Discharge Data
Date of Admission: 10/26/24
Date of Discharge: 10/27/24
-
Pending Results: Yes (Gallbladder pathology)
Hospital Course
Primary diagnosis:
Acute cholecystitis status post lap cholecystectomy
Acute kidney injury on possible chronic kidney disease stage IIIa
Abnormal troponins in the indeterminate range without chest pain. Suspected nonischemic myocardial injury
Secondary diagnosis:
Hyperlipidemia
Hospital course:
79-year-old gentleman presented with acute abdominal pain secondary to acute cholecystitis went on to have a uncomplicated lap cholecystectomy. He also had a cholangiogram which showed no filling defects. LFTs were normal.
Prior to surgery there was a abnormal troponins with peak of 0. 10 without chest pain. No prior history of cardiac disease. Was seen by cardiology. Had an echocardiogram which showed no significant valvular heart disease and normal EF. It was
felt possibly nonischemic myocardial injury and no further testing or medications were recommended.
BETSY on possible chronic kidney disease stage IIIa-patient states in the past he had elevation of creatinine needing 1 visit with a premium cancellation clerk in past but currently follows with PCP. Based on available GFR he may have underlying 3A disease.
Creatinine went up from 1.3 baseline to 1.6 9in acute setting and now back down to 1.3. Denies NSAID use at home. Advised to follow-up BMP in a week or 2 and follow with PCP.
Consultants on board:
Cardiology-Honorio Jeff
Surgery-Jb Sahu
Discharge Plan
-
Patient Disposition: Home (Routine Discharge)
Discharge Diagnosis/Procedures: Acute cholecystitis. Laparoscopic cholecystectomy with cholangiogram. BETSY on Possible CKD 3a.
Condition: Good
Diet: As tolerated
Activity: No strenuous activity
Driving Restrictions: Not until seen by your Dr
Bathing Restrictions: OK to Shower
Blood Work: BMP blood work in 1-2 weeks to follow on your kidney function
Activity Restrictions/Additional Instructions:
Instructions following Laparoscopic cholecystectomy
Please call [phone] if you have any questions or concerns after your surgery.
Wound Care:
Your incisions are covered with skin glue which will come off on it�s own in 5-10 days.
It is ok to shower the day after your surgery. Do not scrub the incisions, let soap and water wash over them and pat dry.
� Bruising around your incisions is normal.
� Using ice packs will help minimize this swelling.
� No swimming or soaking incisions for 1 week.
� Your stitches will dissolve and do not need to be removed.
Urinary retention:
If you are unable to urinate 6-8 hours after your surgery, please call [phone] to discuss further management.
Activity:
No heavy lifting more than 15 pounds for the next 3 weeks, then you may gradually lift heavier objects as tolerated by discomfort. Otherwise activity as tolerated by your comfort level.
Pain Management:
Use Tylenol, ibuprofen and ice packs to treat your pain.
� You may take 650 milligrams of Tylenol (Max 3 grams per day) every 6 hours, and 600 mg of ibuprofen also every 6 hours. (you can alternate them every 3 hours)
� You may use an ice pack to your incision as needed.
� If you still have pain not controlled by these measures, take your prescription pain medication as prescribed.
Medications:
You may resume your home medications.
Bowel Medications:
Prescription pain medication can make you constipated. If you take this medication, also take colace 100 mg twice daily (this is over the counter). If this is not sufficient, you may take Miralax (polyethylene glycol) to help move your bowels.
Diet:
After your procedure, there are no dietary restrictions. You may notice loose stools for up to 4 weeks after surgery with fatty meals, if this is the case you may have to adjust your diet as needed.
Driving restrictions:
No driving if you are taking prescription pain medication or if you think your normal reaction time and attentiveness has been slowed by your surgery.
Things to Look out for:
Worsening Abdominal pain, redness or drainage from incision
Call Doctor for:
Please call if you notice worsening redness or drainage from incision(s) lasting longer than 5 days after your surgery, any foul-smelling drainage from the incision, pain not controlled by pain medications, persistent nausea and vomiting, or for any
fevers greater than 101.3 F. The number for questions/concerns is [phone]
Follow-up:
Follow-up appointment will be scheduled with your surgeon in 3-4 weeks. Please call prior to your appointment if you have any questions or concerns. [phone]
Referrals:
Braden Paulino MD [Family Provider] - in less than 1 week
Jb Tian MD [Active] - in two to four weeks
Prescriptions:
New
acetaminophen [acetaminophen] 325 mg tablet
650 mg PO Q6HPRN PRN (Reason: mild pain) Qty: 14 0RF
tramadol 50 mg tablet
25 mg PO Q6HPRN PRN (Reason: severe pain/breakthrough pain) Qty: 8 0RF
Continued
aspirin 81 MG tablet,delayed release (DR/EC)
81 mg PO SUWE@0800
simvastatin 40 MG tablet
40 mg PO HS
Excedrin Migraine 1 TABLET tablet
2 tab PO DAILYPRN PRN (Reason: migraines)
doxycycline hyclate 20 mg Tablet
20 mg PO BID
escitalopram oxalate [Lexapro] 10 mg Tablet
10 mg PO DAILY
Discharge Orders:
Discharge Patient (As Directed); Ordered 10/27/24
Ordered By: Samir Maria
Discharge Date and Time
Discharge Date/Time: 10/27/24 15:00
Print Language: THAI
== END 2024-10-27 15:00 | disposition home or self-care (01) | DRG 418 ==
LOC: 2 SOUTH 05:16
PROVIDERS: Physician Assistant; ADMITTING PHYSICIAN Internal Medicine; ATTENDING PHYSICIAN Internal Medicine; CONSULT PHYSICIAN Surgery; EMERGENCY PHYSICIAN Emergency Medicine; FAMILY PHYSICIAN Internal Medicine; OTHER PHYSICIAN Student in an Organized Health Care Education/Training Program
PROC: 0FT44ZZ Resection of Gallbladder, Percutaneous Endoscopic Approach (ICD-10-PCS; 2024-10-26)
PROC: BF131ZZ Fluoroscopy of Gallbladder and Bile Ducts using Low Osmolar Contrast (ICD-10-PCS; 2024-10-26)
DX: K80.00 Calculus of gallbladder with acute cholecystitis without obstruction (principal); I5A Non-ischemic myocardial injury (non-traumatic); N17.9 Acute kidney failure, unspecified; G43.909 Migraine, unspecified, not intractable, without status migrainosus; E78.00 Pure hypercholesterolemia, unspecified; F32.A Depression, unspecified; I45.10 Unspecified right bundle-branch block; I49.3 Ventricular premature depolarization; N18.31 Chronic kidney disease, stage 3a; Z60.2 Problems related to living alone; Z79.82 Long term (current) use of aspirin
CPT/HCPCS: 88304; 74177; 74300; 76000; 76700; 80048; 80053; 83690; 84484; 85025; 85027; 93005; 93306; 96361; 96374; 96375; 99285; A4300; Q9967

== ENCOUNTER → 2025-06-18 13:47 | Outpatient (REF) | payer MEDICARE, OTHER, SELFPAY ==
[2025-06-18 14:57] LABS: Blood Urea Nitrogen 22 mg/dl (9-20); Calcium 10.3 mg/dl (8.4-10.2); Carbon Dioxide 30 mmol/L (22-30); Chloride 106 mmol/L (98-107); Glucose 81 mg/dl (70-99); Potassium 4.7 mmol/L (3.5-5.1); Sodium 141 mmol/L (135-145); eGFR 56.23
== END ==
LOC: REG 13:47
PROVIDERS: ATTENDING PHYSICIAN Internal Medicine
DX: I95.1 Orthostatic hypotension (principal)
CPT/HCPCS: 36415; 80048

== ENCOUNTER → 2025-07-02 10:14 | Outpatient (REF) | payer MEDICARE, OTHER, SELFPAY ==
[2025-07-02 11:28] LABS: ALT (SGPT) 20 U/L (0-50); AST (SGOT) 26 U/L (17-59); Albumin 4.5 g/dl (3.5-5.0); Alkaline Phosphatase 90 U/L (38-126); Blood Urea Nitrogen 23 mg/dl (9-20); Calcium 10.2 mg/dl (8.4-10.2); Carbon Dioxide 27 mmol/L (22-30); Chloride 105 mmol/L (98-107); Glucose 93 mg/dl (70-99); Potassium 4.6 mmol/L (3.5-5.1); Sodium 143 mmol/L (135-145); Total Protein 7.1 g/dl (6.3-8.2); eGFR 56.23
== END ==
LOC: REG 10:14
PROVIDERS: FAMILY PHYSICIAN Internal Medicine
DX: I95.1 Orthostatic hypotension (principal)
CPT/HCPCS: 36415; 80053